=== PATIENT | male | born 1970 | race Caucasian/White ===

== ENCOUNTER 2017-07-19 04:30 | Emergency (ER) | payer OTHER ==
[2017-07-19 04:49] VITALS: O2SAT 97
--- NOTE | 2017-07-19 05:08 | ERPHSYRPT ---
- History of Present Illness Time Seen by Provider: 07/19/17 05:00 Historian: patient Exam Limitations: no limitations Patient Subjective Stated Complaint: Pt sts routinely checks blood pressure at home. Sts chest pain after checking blood pressure "because I freaked out". Sts that he took 1 ntg SL that helped relieve his chest pain. Pt sts he now has a headache. Denies shortness of breath, N/V. Denies other complaints. Denies chest pain at present. Triage Nursing Assessment: Pt alert, oriented, answers all questions appropriately. Speaks in full sentences without difficulty. Pt ambulatory to tx room, steady gait noted. Lung sounds clear all torres, heart RRR. Bowel sounds present x 4 quadrants. food handler - sinus rhythm Physician History: 47 y/o male with history of CAD with stent and HTN comes to the ER with complaints of left sided chest pain that started at 10:30 last night after noticing his BP was elevated. Pt says he became anxious of the number and shortly thereafter had chest pain. Pt describes the pain as sharp, lasting for 10 minutes, with no radiation and relieved by nitroglycerin. Pt denies any shortness of breath, dizziness or palpitations. Timing/Duration: yesterday Activities at Onset: activity Quality: sharpness Location: other (left chest) Chest Pain Radiation: no radiation Severity of Pain-Max: mild Severity of Pain-Current: none Modifying Factors: Improves With: nothing Associated Symptoms: denies symptoms Prior Chest Pain/Cardiac Workup: no prior chest pain Nitro Today/Relief: 0.4 mg x 1 Aspirin Treatment Today: no aspirin today Allergies/Adverse Reactions: amoxicillin [From Augmentin] Adverse Reaction (Intermediate, Verified 07/19/17 04:52) Swelling of Feet clavulanic acid [From Augmentin] Adverse Reaction (Intermediate, Verified 04:52) Swelling of Feet Home Medications: Amoxicillin [Amoxil] 875 mg PO TID 07/19/17 [History] Clopidogrel Bisulfate [Plavix] 75 mg PO DAILY 07/19/17 [History] Furosemide 40 mg PO BID 07/19/17 [History] Losartan Potassium [Cozaar] 25 mg PO DAILY 07/19/17 [History] Lovastatin 40 mg PO DAILY 07/19/17 [History] Metoprolol Tartrate 25 mg PO BID 07/19/17 [History] Potassium Chloride 10 Meq Tab* [Klor Con 10 MEQ] 40 meq PO DAILY 07/19/17 [ History] Immunizations Up to Date: Yes - Review of Systems Constitutional: No Fever, No Chills Eyes: No Symptoms Ears, Nose, & Throat: No Symptoms Respiratory: No Cough, No Dyspnea Cardiac: Chest Pain, No Edema, No Syncope Abdominal/Gastrointestinal: No Abdominal Pain, No Nausea, No Vomiting, No Diarrhea Genitourinary Symptoms: No Dysuria Musculoskeletal: No Back Pain, No Neck Pain Skin: No Rash Neurological: No Dizziness, No Focal Weakness, No Sensory Changes Psychological: No Symptoms Endocrine: No Symptoms All Other Systems: Reviewed and Negative - Past Medical History Pertinent Past Medical History: Yes Cardiac History: High Cholesterol, Hypertension Other Medical History: "water retention" - Past Surgical History Past Surgical History: Yes Cardiac: Cardiac Stent - Social History Smoking Status: Current every day smoker How long have you smoked: 26 Exposure to second hand smoke: Yes Drug Use: none Patient Lives Alone: No - Nursing Vital Signs Nursing Vital Signs: Initial Vital Signs Temperature 97.9 F 07/19/17 04:48 Pulse Rate 75 07/19/17 04:48 Respiratory Rate 16 07/19/17 04:48 Blood Pressure 144/92 07/19/17 04:48 O2 Sat by Pulse Oximetry 97 07/19/17 04:48 Pain Scale Pain Intensity 0 - Physical Exam General Appearance: no apparent distress, alert Eye Exam: PERRL/EOMI, eyes nml inspection Ears, Nose, Throat Exam: normal ENT inspection, moist mucous membranes Neck Exam: normal inspection, non-tender, supple, full range of motion Respiratory Exam: normal breath sounds, lungs clear, No chest tenderness, No respiratory distress Cardiovascular Exam: regular rate/rhythm, normal heart sounds, normal peripheral pulses Gastrointestinal/Abdomen Exam: soft, No tenderness, No mass Back Exam: normal inspection, No CVA tenderness, No vertebral tenderness Extremity Exam: normal inspection, normal range of motion Neurologic Exam: alert, oriented x 3, cooperative, normal mood/affect, sensation nml, No motor deficits Skin Exam: normal color, warm, dry SpO2: 97 Oxygen Delivery: Room Air - Course Nursing assessment & vital signs reviewed: Yes EKG Interpreted by Me: RATE, NORMAL AXIS, NORMAL INTERVALS, NORMAL QRS, NORMAL ST-T (hr 74) Ordered Tests: Active Orders 24 hr Category Date Time Status Data Entry Email Processor STAT Care 07/19/17 04:46 Active Clean Catch Urine Specimen STAT Care 07/19/17 05:01 Active EKG-ER Only STAT Care 07/19/17 04:46 Active IV Insertion STAT Care 07/19/17 05:00 Active CBC W DIFF Stat Lab 07/19/17 05:17 Completed CK-Creatinine Phosphokinase Stat Lab 07/19/17 05:17 Completed CMP Stat Lab 07/19/17 05:17 Completed TROPONIN Q3H Lab 07/19/17 05:15 Completed TROPONIN Q3H Lab 07/19/17 08:15 Ordered TROPONIN Q3H Lab 07/19/17 11:15 Ordered TROPONIN Q3H Lab 07/19/17 14:15 Ordered TROPONIN Q3H Lab 07/19/17 17:15 Ordered Lab/Rad Data: Laboratory Result Diagrams 07/19/17 05:17 07/19/17 05:17 Laboratory Results 07/19/17 07/19/17 07/19/17 Range/Units 05:17 05:17 05:15 WBC 7.5 (4.0-10.5) K/mm3 RBC 4.67 (4.1-5.6) M/mm3 Hgb 15.6 (12.5-18.0) gm/dl Hct 46.3 (42-50) % MCV 99.1 (78-100) fl MCH 33.4 H (26-32) pg MCHC 33.7 (32-36) g/dl RDW 12.8 (11.5-14.0) % Plt Count 220 (150-450) K/mm3 MPV 10.6 H (6-9.5) fl Gran % 63.1 (36.0-66.0) % Lymphocytes % 26.6 (24.0-44.0) % Monocytes % 7.5 (0.0-12.0) % Eosinophils % 2.3 (0.00-5.0) % Basophils % 0.5 (0.0-0.4) % Basophils # 0.04 (0-0.4) Sodium 139 (136-145) mEq/L Potassium 4.4 (3.5-5.1) mEq/L Chloride 104 (98-107) mEq/L Carbon Dioxide 28.0 (21-32) mEq/L Anion Gap 11.0 (5-15) MEQ/L BUN 9 (9-20) mg/dL Creatinine 1.17 (0.55-1.30) mg/dl Estimated GFR > 60 ML/MIN Glucose 128 H (70-110) MG/DL Calcium 8.9 (8.5-10.1) mg/dL Total Bilirubin 0.30 (0.2-1.0) mg/dL AST 18 (15-37) U/L ALT 27 (12-78) U/L Alkaline Phosphatase 62 (46-116) U/L Creatine Kinase 106 (39-308) U/L Troponin I < 0.017 (0.000-0.056) ng/ml Serum Total Protein 7.2 (6.4-8.2) gm/dL Albumin 3.8 (3.4-5.0) g/dL - Progress Progress: improved Progress Note: 07/19/17 06:31 The patient has not had any chest pain in the ER. The EKG is within normal limits. The troponin is negative. The rest of the labs are within normal limits. Pt will be d/c home with F/U with PCP. - Departure Time of Disposition: 06:32 Departure Disposition: Home Clinical Impression: Atypical chest pain Condition: Stable Critical Care Time: No Referrals: GABRIELA BARRAZA [Primary Care Provider] - Instructions: Atypical Chest Pain Additional Instructions: Follow up with your primary care doctor in the next 2-3 days for any additional recommendations.
[2017-07-19 05:39] LABS: BASOPHIL % 0.5 % (0.0-0.4); Eosinophil % 2.3 % (0.00-5.0); Granulocytes % 63.1 % (36.0-66.0); Lymphocytes % 26.6 % (24.0-44.0); Mean Cell Volume 99.1 fl (78-100); Mean Corpuscular Hemoglobin 33.4 pg (26-32); Mean Platelet Volume 10.6 fl (6-9.5); Monocytes % 7.5 % (0.0-12.0); Platelet Count 220 K/mm3 (150-450); Red Blood Count 4.67 M/mm3 (4.1-5.6); Red Cell Distribution Width 12.8 % (11.5-14.0); White Blood Count 7.5 K/mm3 (4.0-10.5)
[2017-07-19 06:12] VITALS: PULSE 73
[2017-07-19 06:14] LABS: ALBUMIN 3.8 g/dL (3.4-5.0); ALKALINE PHOSPHATASE 62 U/L (46-116); BLOOD UREA NITROGEN 9 mg/dL (9-20); CHLORIDE 104 mEq/L (98-107); Glucose 128 MG/DL (70-110); Potassium 4.4 mEq/L (3.5-5.1); SGOT/AST 18 U/L (15-37); SGPT/ALT 27 U/L (12-78); SODIUM 139 mEq/L (136-145); Total Protein 7.2 gm/dL (6.4-8.2)
[2017-07-19 06:39] VITALS: BP 141/86
== END 2017-07-19 06:46 | disposition home or self-care (01) ==
LOC: ED 04:30
DX: R07.89 Other chest pain (principal); R51 Headache; I25.10 Atherosclerotic heart disease of native coronary artery without angina pectoris; Z98.61 Coronary angioplasty status; I10 Essential (primary) hypertension
CPT/HCPCS: 36000; 36415; 80053; 82550; 84484; 85025; 93005; 93041; 99284

== ENCOUNTER 2018-03-07 01:53 | Emergency (ER) | payer OTHER ==
[2018-03-07] MEDS ORDERED: Sodium Chloride 0.9% 1000 ML 1,000 ML IV STA (02:33)
[2018-03-07] MEDS ORDERED: TORAdol 30 mg Injection IV ONE (02:33)
[2018-03-07] MEDS ORDERED: Zofran 4 MG/2 ML VIAL IV ONE (02:33)
--- NOTE | 2018-03-07 02:38 | ERPHSYRPT ---
- History of Present Illness Time Seen by Provider: 03/07/18 02:28 Historian: patient Exam Limitations: no limitations Patient Subjective Stated Complaint: pt states he thinks he has a uti and has been having trouble voiding. states he was having lower back pain until he was able to void after checking in to er. Triage Nursing Assessment: pt alert and oriented, answers questions approp. pt ambulaotry with steady gait noted. respirations nonlabored with lungs cta. no tenderness noted to lower back or abd. no void at this time Physician History: Pt started c/o urinary frequency, burning since yesterday, left flank pain tonight, nausea. He denies vomiting, fever, chills, diarrhea or other complaints , no radiating pain, or leg pain, weakness. He has a history of kidney stones, denies surgery. Timing/Duration: yesterday Activities at Onset: none Quality: burning Abdominal Pain Onset Location: flank (left) Severity of Pain-Max: moderate Severity of Pain-Current: moderate Modifying Factors: Improves With: nothing Associated Symptoms: back Previous symptoms: same symptoms as today Allergies/Adverse Reactions: clavulanic acid [From Augmentin] Adverse Reaction (Intermediate, Verified 02:22) Swelling of Feet Home Medications: Clopidogrel Bisulfate [Plavix] 75 mg PO DAILY 07/19/17 [History] Furosemide 40 mg PO BID 07/19/17 [History] Losartan Potassium [Cozaar] 25 mg PO DAILY 07/19/17 [History] Metoprolol Tartrate 25 mg PO BID 07/19/17 [History] Potassium Chloride 10 Meq Tab* [Klor Con 10 MEQ] 40 meq PO DAILY 07/19/17 [ History] Hx Tetanus, Diphtheria Vaccination/Date Given: Yes Hx Influenza Vaccination/Date Given: No Hx Pneumococcal Vaccination/Date Given: No Immunizations Up to Date: Yes - Review of Systems Constitutional: No Symptoms Genitourinary Symptoms: Dysuria, Frequency, Flank Pain, No Hematuria Musculoskeletal: Back Pain All Other Systems: Reviewed and Negative - Past Medical History Pertinent Past Medical History: Yes Cardiac History: Coronary Artery Disease, High Cholesterol, Hypertension, Myocardial Infarction (HI) Other Medical History: "water retention" - Past Surgical History Past Surgical History: Yes Cardiac: Cardiac Stent - Social History Smoking Status: Current every day smoker How long have you smoked: 26 Exposure to second hand smoke: Yes Drug Use: none Patient Lives Alone: No - Nursing Vital Signs Nursing Vital Signs: Initial Vital Signs Temperature 98.7 F 03/07/18 02:13 Pulse Rate 87 03/07/18 02:13 Respiratory Rate 18 03/07/18 02:13 Blood Pressure 160/104 03/07/18 02:13 O2 Sat by Pulse Oximetry 98 03/07/18 02:13 Pain Scale Pain Intensity 1 - Physical Exam General Appearance: no apparent distress Eye Exam: eyes nml inspection Ears, Nose, Throat Exam: normal ENT inspection Neck Exam: normal inspection, non-tender Respiratory Exam: normal breath sounds, lungs clear, airway intact Cardiovascular Exam: regular rate/rhythm, normal heart sounds, normal peripheral pulses, No murmur Gastrointestinal/Abdomen Exam: soft, normal bowel sounds, No tenderness, No distention, No mass, No guarding, No pulsatile mass, No rebound, No hernia, No organomegaly Back Exam: normal inspection, CVA tenderness (left) Extremity Exam: normal inspection Neurologic Exam: alert, oriented x 3 Skin Exam: normal color, warm, dry, No rash Lymphatic Exam: No adenopathy SpO2 Interpretation: normal SpO2: 98 Oxygen Delivery: Room Air - Course Nursing assessment & vital signs reviewed: Yes - CT Exams Abdomen/Pelvis CT Interpretation: Tele-radiologist Report, Other (Moderate left hydronephrosis with perinephric starnding, 5 mm stone just below the left UPJ, s/p right nephrectomy.) Ordered Tests: Active Orders 24 hr Category Date Time Status IV Insertion STAT Care 03/07/18 02:33 Active ABDOMEN AND PELVIS W/0 CONTRAS [CT] Stat Exams 03/07/18 02:34 Taken CBC W DIFF Stat Lab 03/07/18 02:50 Completed CMP Stat Lab 03/07/18 02:50 Completed LIPASE Stat Lab 03/07/18 02:50 Completed UA W/ MICROSCOPIC Stat Lab 03/07/18 02:51 Completed Medication Summary Discontinued Medications Generic Name Dose Route Start Last Admin Trade Name Freq PRN Reason Stop Dose Admin Sodium Chloride 1,000 mls @ 999 mls/hr 03/07/18 02:33 03/07/18 02:58 Sodium Chloride 0.9% 1000 Ml IV 03/07/18 03:33 999 mls/hr .Q1H1M STA Administration Sodium Chloride Confirm 03/07/18 02:54 Sodium Chloride 0.9% 1000 Ml Administered 03/07/18 02:55 Dose 1,000 mls @ ud .ROUTE .STK-MED ONE Ketorolac Tromethamine 30 mg 03/07/18 02:33 03/07/18 02:58 Toradol 30 Mg Injection IV 03/07/18 02:34 30 mg STAT ONE Administration Ketorolac Tromethamine Confirm 03/07/18 02:53 Toradol 30 Mg Injection Administered 03/07/18 02:54 Dose 30 mg .ROUTE .STK-MED ONE Ondansetron HCl 4 mg 03/07/18 02:33 03/07/18 02:58 Zofran 4 Mg/2 Ml Vial IV 03/07/18 02:34 4 mg STAT ONE Administration Ondansetron HCl Confirm 03/07/18 02:53 Zofran 4 Mg/2 Ml Vial Administered 03/07/18 02:54 Dose 4 mg .ROUTE .STK-MED ONE Lab/Rad Data: Laboratory Result Diagrams 03/07/18 02:50 03/07/18 02:50 Laboratory Results 03/07/18 03/07/18 03/07/18 Range/Units 02:51 02:50 02:50 WBC 13.2 H (4.0-10.5) K/mm3 RBC 4.78 (4.1-5.6) M/mm3 Hgb 16.1 (12.5-18.0) gm/dl Hct 46.5 (42-50) % MCV 97.3 (78-100) fl MCH 33.7 H (26-32) pg MCHC 34.6 (32-36) g/dl RDW 12.7 (11.5-14.0) % Plt Count 191 (150-450) K/mm3 MPV 9.4 (6-9.5) fl Gran % 77.6 H (36.0-66.0) % Eos # (Auto) 0.21 (0-0.5) Absolute Lymphs (auto) 1.72 (1.0-4.6) Absolute Monos (auto) 0.97 (0.0-1.3) Lymphocytes % 13.0 L (24.0-44.0) % Monocytes % 7.3 (0.0-12.0) % Eosinophils % 1.6 (0.00-5.0) % Basophils % 0.5 (0.0-0.4) % Absolute Granulocytes 10.26 H (1.4-6.9) Basophils # 0.06 (0-0.4) Sodium 138 (137-145) mmol/L Potassium 3.8 (3.5-5.1) mmol/L Chloride 100 (98-107) mmol/L Carbon Dioxide 26 (22-30) mmol/L Anion Gap 14.6 (5-15) MEQ/L BUN 14 (9-20) mg/dL Creatinine 1.86 H (0.66-1.25) mg/dL Estimated GFR 41.4 ML/MIN Glucose 107 H (74-106) mg/dL Calcium 9.2 (8.4-10.2) mg/dL Total Bilirubin 0.70 (0.2-1.3) mg/dL AST 20 (17-59) U/L ALT 17 (0-50) U/L Alkaline Phosphatase 72 (38-126) U/L Serum Total Protein 7.3 (6.3-8.2) g/dL Albumin 4.2 (3.5-5.0) g/dL Lipase 95 (23-300) U/L Ur Collection Type CCMS Urine Color YELLOW (YELLOW) Urine Appearance CLEAR (CLEAR) Urine pH 5.0 (5-6) Ur Specific [place] 1.020 (1.005-1.025) Urine Protein NEGATIVE (Negative) Urine Ketones NEGATIVE (NEGATIVE) Urine Blood 250 (0-5) Bhupendra/ul Urine Nitrite NEGATIVE (NEGATIVE) Urine Bilirubin NEGATIVE (NEGATIVE) Urine Urobilinogen NORMAL (0-1) mg/dL Ur Leukocyte Esterase NEGATIVE (NEGATIVE) Urine Microscopic RBC 15-25 (0-2) /HPF Urine Microscopic WBC 0-2 (0-5) /HPF Ur Epithelial Cells RARE (FEW) /HPF Urine Bacteria RARE (NEGATIVE) /HPF Urine Mucus SLIGHT (NEGATIVE) /HPF Urine Culture Reflexed NO (NO) Urine Glucose NEGATIVE (NEGATIVE) mg/dL Specimen Received 03-07-18 0330 - Progress Progress: improved Progress Note: 03/07/18 05:04 Pt is pain free, afebrile, feels better, I called Dr Harris, Urologist at [facility], discussed our results and this patient's current condition, he accepted patient to be transferred to their ED. Pt wants to be driven by his , he is asymptomatic. I asked him to remain on empty stomach, because he is going to need surgery, stent placement this morning as per Dr Harris. I also talked with Dr Palm, ED Physician, who also accepted patient to be transferred there for further care. Patient and his understood, and agreed, she will drive him to [place]. He has been stable. Discussed with Dr.: Other ( Dr Harris, Dr Palm) Will see patient in: ED (in [facility] ED), other Counseled pt/family regarding: lab results, diagnosis, need for follow-up, rad results - Departure Time of Disposition: 05:10 Departure Disposition: Transfer (To [facility] ED, [place], will drive him) Clinical Impression: Ureteral stone with hydronephrosis Condition: Stable Critical Care Time: No Referrals: JACKIE SUAREZ [Primary Care Provider] - Instructions: Renal Colic (DC), Ureteral Stent (DC) Additional Instructions: Have your drive you to [facility] Emergency Room in [place] now , to see Dr Palm ER physician and Dr Harris Urologist!
[2018-03-07 02:52] LABS: BASOPHIL % 0.5 % (0.0-0.4); Basophil (Absolute #) 0.06 (0-0.4); Eosinophil % 1.6 % (0.00-5.0); Eosinophil (Absolute #) 0.21 (0-0.5); Granulocyte Absolute (ANC) 10.26 (1.4-6.9); Granulocytes % 77.6 % (36.0-66.0); Hematocrit 46.5 % (42-50); Hemoglobin 16.1 gm/dl (12.5-18.0); Lymphocyte (Absolute #) 1.72 (1.0-4.6); Mean Cell Volume 97.3 fl (78-100); Mean Corpuscular Hemoglobin 33.7 pg (26-32); Mean Corpuscular Hgb Concent. 34.6 g/dl (32-36); Mean Platelet Volume 9.4 fl (6-9.5); Monocyte (Absolute #) 0.97 (0.0-1.3); Monocytes % 7.3 % (0.0-12.0); Platelet Count 191 K/mm3 (150-450); Red Blood Count 4.78 M/mm3 (4.1-5.6); Red Cell Distribution Width 12.7 % (11.5-14.0); White Blood Count 13.2 K/mm3 (4.0-10.5)
[2018-03-07] MEDS ORDERED: Zofran 4 MG/2 ML VIAL ONE (02:53)
[2018-03-07] MEDS ORDERED: TORAdol 30 mg Injection ONE (02:53)
[2018-03-07] MEDS ORDERED: Sodium Chloride 0.9% 1000 ML 1,000 ML ONE (02:54)
[2018-03-07 03:11] LABS: ALBUMIN 4.2 g/dL (3.5-5.0); ANION GAP 14.6 MEQ/L (5-15); BILIRUBIN,TOTAL 0.7 mg/dL (0.2-1.3); Calcium 9.2 mg/dL (8.4-10.2); Creatinine 1 1.86 mg/dL (0.66-1.25); Potassium 3.8 mmol/L (3.5-5.1); Total Protein 7.3 g/dL (6.3-8.2)
[2018-03-07 03:31] LABS: Appearance CLEAR (CLEAR); Bilirubin NEGATIVE (NEGATIVE); Blood 250 Ery/ul (0-5); Glucose NEGATIVE (NEGATIVE); Ketones NEGATIVE (NEGATIVE); Leukocyte Esterase NEGATIVE (NEGATIVE); Nitrite NEGATIVE (NEGATIVE); Protein,Urine Dip NEGATIVE (Negative); Urobilinogen NORMAL mg/dL (0-1)
[2018-03-07 03:32] LABS: Bacteria RARE /HPF (NEGATIVE); Epithelial Cells RARE /HPF (FEW); Mucus SLIGHT /HPF (NEGATIVE); RBC 15-25 /HPF (0-2); WBC 0-2 /HPF (0-5)
[2018-03-07 05:27] VITALS: BP 133/78; PULSE 76; O2SAT 99
--- NOTE | 2018-03-07 15:32 | XRAY ---
Exam: CT of the abdomen and pelvis without IV contrast from 03/07/2018. CTDI: 23.68 Comparison: None. Indication: 47-year-old male with lower back pain and left flank pain associated with nausea, dysuria, and frequency. Technique: Non-IV contrast axial images were obtained through the abdomen and pelvis. Reconstructed coronal and sagittal images were created and reviewed. No oral contrast was given. Findings: The lung bases reveal a partially seen 5 mm subpleural soft tissue nodule just posterior to the midaxillary line at the left lung base on image #1. Otherwise, the lung bases appear clear. Incidentally, there appears to be a minimal hiatal hernia present. 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 The left kidney appears swollen measuring 16.9 cm in length on sagittal image #154. There is left perirenal stranding and hydronephrosis. This appears to be due to an obstructing stone just beyond the left ureteropelvic junction, the stone measuring about 5 mm in greatest diameter. See axial images #47 and #48. The remainder of the left ureter beyond the proximal left ureteral stone is unremarkable. In addition, there is a nonobstructing 6 mm stone within the lower pole of the left kidney. The urinary bladder is minimally distended. No urinary bladder stone is seen. The liver reveals some prominence of the inferior portion of the right lobe which may represent a Donato's lobe (normal variant). Otherwise, the liver and spleen appear unremarkable. The gallbladder is distended and reveals no dense calcifications within it. The pancreas and both adrenal glands appear normal. The abdominal aorta is of normal diameter. No abnormal retroperitoneal or mesenteric lymphadenopathy is seen. Abundant intraperitoneal fat is evident. No free intraperitoneal air is seen. The anterior abdominal wall appears intact. The appendix appears normal within the right lower quadrant. There is no evidence of bowel obstruction or distention. The seminal vesicles and prostate gland are remarkable only for a tiny punctate prostate gland calcification on axial image #85. The skeleton reveals no acute fracture or aggressive bone lesion. I note mild degenerative disc disease within the lower thoracic spine with some vacuum disc phenomena. There is a mild Schmorl's node within the anterior aspect of the superior vertebral endplate of L3. Impression: 1. There is evidence of acute obstructive uropathy on the left, apparently due to an obstructing 5 mm in diameter stone within the proximal left ureter just beyond the UPJ junction. The left kidney is enlarged/swollen and demonstrates perinephric stranding. There is also an additional 6 mm in diameter nonobstructing stone within the lower pole of the left kidney. 2. The right kidney is not seen. This may be due to congenital absence or surgical resection (although no surgical clips are seen). Correlate clinically. 3. Minimal hiatal hernia. 4. No other acute process is seen within the abdomen or pelvis. 6. Partially seen 5 mm subpleural soft tissue nodule at lateral left lung base on image #1. This is incompletely evaluated.
== END 2018-03-07 05:25 | disposition short-term general hospital (02) ==
LOC: ED 01:53
DX: N13.2 Hydronephrosis with renal and ureteral calculous obstruction (principal); Z79.899 Other long term (current) drug therapy
CPT/HCPCS: 36000; 36415; 74176; 80053; 81000; 83690; 85025; 96360; 96374; 96375; 99285; J1885; J2405